=== PATIENT | female | born 2000 | race Caucasian/White ===

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

== ENCOUNTER 2019-01-03 00:28 | Observation (INO) ==
--- NOTE | 2019-01-03 00:03 | OB/GYN Progress Note ---
Date of Encounter: 01/03/19 Time of Encounter: 00:00 - Assessment and Plan (1) 37 weeks gestation of Current Visit: Yes Status: Acute SVE 1 hr later unchanged. NST reactive, FHR baseline 130bpm. Kick counts reviewed. Discharge home with return precautions. (2) False labor Current Visit: Yes Status: Acute Subjective - Subjective Principal diagnosis: contractions Interval history: 18 y/o presenting at 37w4d with c/o contractions that began at 2130 this evening and have been ~ 4 minutes apart. Denies VB or LOF. Reports good FM. Antepartum ROS: movement normal, contractions, no loss of fluid, no vaginal bleeding Objective - Exam FHR comments: NST reactive, FHR baseline 130 bpm Auscultation: bilateral: normal Abdomen: Present: normal appearance, soft, gravid Cervical dilation: 4 Cervix effacement: 70 station: -2
== END 2019-01-03 01:28 | disposition home or self-care (01) ==
LOC: 1NENULAB
PROVIDERS: ADMIT Registered Nurse; ATTEND Registered Nurse

== ENCOUNTER 2019-01-10 17:16 | Inpatient (IN) ==
[~2019-01-10 17:16] MED LIST: *HR* Nalbuphine 10 MG/ML AMPUL IVP PRN; Famotidine 20 MG/2 ML VIAL IVP PRN; Naloxone 0.4 MG/ML INJ IVP PRN
[2019-01-10] MEDS ORDERED: Ringers Solution, Lactated 1,000 ML ONE (17:25)
[2019-01-10] MEDS ORDERED: Ringers Solution, Lactated 1,000 ML IVC SCH (17:30)
[2019-01-10 17:35] LABS: Basophils % 0.4 %; Eosinophils % 0.4 %; Hematocrit 31.6 % (35.3-44.9); Hemoglobin 10.4 g/dL (11.5-15.4); Immature Granulocytes % 0.5 % (0-4); Lymphocytes # 2.2 K/mcL (0.6-4.6); Lymphocytes % 20.8 %; Mean Corpuscular HGB Conc 32.9 g/dL (31.6-35.5); Mean Corpuscular Hemoglobin 24.9 pg (28.0-33.3); Mean Corpuscular Volume 75.8 fL (83.0-100.0); Monocytes # 0.8 K/mcL (0.0-1.3); Monocytes % 7.2 %; Neutrophils # 7.4 K/mcL (1.6-8.9); Platelet Count 241 K/mcL (140-400); Red Blood Count 4.17 M/mcL (3.82-4.97); Red Cell Distribution Width 14.2 % (11.5-14.5); Segmented Neutrophils % 70.7 %
[2019-01-10] MEDS ORDERED: Epidural Premix (fent/bupiv) 110 ML EP SCH (17:45)
[2019-01-10] MEDS ORDERED: Lidocaine -MPF 1% 5 ML AMPUL ONE (17:49)
--- NOTE | 2019-01-10 18:53 | OB/GYN History & Physical ---
Date of Encounter: 01/10/19 Time of Encounter: 18:50 Assessment and Plan (1) 38 weeks gestation of Current visit: Yes Status: Acute Patient admitted for spontaneous labor at 38 weeks and 5 days (2) NST (non-stress test) reactive Current visit: Yes Status: Acute FHR 135 bpm, moderate variability +15 x 15 accelerations, no decelerations. (3) Spontaneous onset of labor Current visit: Yes Status: Acute Patient arrived to unit at 30 weeks 5 days in labor with a cervical exam of 5-6 cm (4) Maternal varicella, non-immune Current visit: Yes Status: Acute Offer vaccination History of Present Illness Chief complaint: Labor HPI: Ms. Pope is a 18 year old female at 38 weeks 5 days who arrives today in spontaneous labor. She reports positive movement, denies vaginal bleeding and leakage of fluid. She reports frequent contractions and is visibly uncomfortable with them. She does request an epidural for pain management. She states her contractions started earlier today and have progressively gotten worse. Blood type O+ GBS negative Rubella immune Varicella nonimmune T pal negative HIV-negative Past Med Surg Social Fam HX - Past Medical History Medical history: no medical history Psychiatric history: no psych history - Past Surgical History Surgical History: other Additional surgical history: left arm elbow and wrist surgery - Social History Smoking Status: Former smoker Smokeless Tobacco Status: No Alcohol use: none Drug use: none, marijuana - Family History Mother Name: Sarah Age: 53 Family Member Ethnicity: Non- Living Status: Still Living Hx Family Cardiac Disorders: No Hx Family Respiratory Disorders: No Hx Family Cancer: No Hx Family GI Disorders: No Hx Family Endocrine Disorder: No Hx Family Neuromuscular Disorders: No Hx Family Neurologic Disorders: No Hx Family HEENT Disorders: No Hx Family Autoimmune Disorders: No Hx Family Medical Disorders: No Father Family Member Ethnicity: Non- Living Status: Still Living Brother Family Member Ethnicity: Non- Living Status: Still Living Sister Family Member Ethnicity: Non- Living Status: Still Living Obstetrical History - Pregnancies : 2 Para: 1 Term: 1 : 0 Ab's: 0 Livin Medications and Allergies Pnv No.115/Iron Fumarate/FA [ 19 Chewable Tablet] 1 tab PO DAILY 05/31/18 [History] Ondansetron ODT [Zofran ODT] 4 mg SL Q6H PRN 06/10/18 [History] Promethazine [Phenergan] 12.5 mg PO Q6HR PRN 06/10/18 [History] Diphenhydramine HCl [Allergy] 12.5 mg PO Q6H PRN 06/16/18 [History] Famotidine [Pepcid] 20 mg PO BID 30 Days #60 tablet 06/19/18 [Rx] Pyridoxine (B-6) [Vitamin B-6] 75 mg PO DAILY 30 Days #30 tablet 06/19/18 [Rx] Patient Taking Own Medication 1 each PO 0800,1500 each 06/30/18 [Rx] Patient Taking Own Medication 2 each PO HS each 06/30/18 [Rx] Allergy/AdvReac Type Severity Reaction Status Date / Time No Known Allergies Allergy Verified 06/28/18 11:21 Exam - Constitutional Constitutional: well developed, well nourished, no acute distress, average body habitus - HEENT HEENT: Normocephaly, Mucus Membranes Moist - Neck Neck exam: full ROM, normal inspection - Lungs Respiratory exam: CTAB - Cardiovascular Cardiovascular exam: RRR, +S1, +S2 - Breasts Breast: bilateral: normal - Abdomen Abdomen: Present: bowel sounds normal, gravid, non tender - Extremities Extremities exam: full ROM, normal capillary refill, normal inspection Deep Tendon Reflex Grade: 2+ Normal - Vulva Vulva: bilateral: normal - Vagina Vagina: Present: normal moisture - Cervix Dilation: 8 Effacement: 100 Station: 0 - Uterus Uterus exam: Present: normal size - Anus/Rectum Anus/Rectum: Present: normal perianal skin Results Result Diagrams: 01/10/19 17:18 Abnormal lab results Hgb 10.4 g/dL (11.5-15.4) L 01/10/19 17:18 Hct 31.6 % (35.3-44.9) L 01/10/19 17:18 MCV 75.8 fL (83.0-100.0) L 01/10/19 17:18 MCH 24.9 pg (28.0-33.3) L 01/10/19 17:18 All other labs normal. - VTE Reasons for not Prescribing Prophylaxis: Treatment not Indicated - Low risk for VTE
[2019-01-10] MEDS ORDERED: Oxytocin 20 units/ LR 1000 mL 20 UNIT/1,000 ML BAG IVC ONE (19:26)
--- NOTE | 2019-01-10 19:43 | Anesthesia Evaluation PreOp ---
Date of Encounter: 01/10/19 Time of Encounter: 17:00 - Past History Planned Operation: JUSTIN Cardiac History: Denies any Significant Hx Pulmonary History: Denies Any Significant HX POULTRY DEBEAKER History: Denies Any Significant HX Other Medical History: Denies Any Significant HX Anesthesia History: No Prior Anesthetic Complications : Yes Test: Positive Alcohol Use: none Drug use: none, marijuana Medications and Allergies Pnv No.115/Iron Fumarate/FA [ 19 Chewable Tablet] 1 tab PO DAILY 05/31/18 [History] Ondansetron ODT [Zofran ODT] 4 mg SL Q6H PRN 06/10/18 [History] Promethazine [Phenergan] 12.5 mg PO Q6HR PRN 06/10/18 [History] Diphenhydramine HCl [Allergy] 12.5 mg PO Q6H PRN 06/16/18 [History] Famotidine [Pepcid] 20 mg PO BID 30 Days #60 tablet 06/19/18 [Rx] Pyridoxine (B-6) [Vitamin B-6] 75 mg PO DAILY 30 Days #30 tablet 06/19/18 [Rx] Patient Taking Own Medication 1 each PO 0800,1500 each 06/30/18 [Rx] Patient Taking Own Medication 2 each PO HS each 06/30/18 [Rx] Allergy/AdvReac Type Severity Reaction Status Date / Time No Known Allergies Allergy Verified 06/28/18 11:21 - Meds/Allergy Pre-op Review Medications Reviewed: Yes Allergies Reviewed: Yes Beta Blockers on Current Med List: No Anesthesia Results - Labs 01/10/19 17:18 Anesthesia Exam - HEENT Pupil (Motor): Pupils equal Mallampati: II Teeth: Normal Oral Opening: Greater than 3 - POULTRY DEBEAKER LOC: Oriented POULTRY DEBEAKER Motor: Normal RUE, Normal LUE, Normal RLE, Normal LLE, Normal Face POULTRY DEBEAKER Sensory: Normal: RUE, LUE, RLE, LLE, Face - Cardiac Rhythm: Regular Murmur: None JVD: No Carotid Bruit: No - Pulmonary Breath Sounds: bilateral Clear Respiratory Effort: Symmetrical Anesthesia Assess/Plan ASA Score: 1 Level of consciousness: Cooperative
--- NOTE | 2019-01-10 19:46 | Anesthesia Procedures ---
Date of Encounter: 01/10/19 Time of Encounter: 17:00 Procedures: Anesthesia - Epidural/Spinal Patient ID/Chart reviewed: Yes Patient examined: Yes OB Eval: Gestational age: 38.5 OB Eval: : 2 OB Eval: Hx Para: 1 OB Eval: Dilated at (cm): 6 OB Eval: Contractions: Non-stressed pattern Consent Obtained: Yes Site Prep: Aseptic Technique, Sterile prep and drape, Povidone-Iodine 1% Patient position: upright Amount of Local Anesthetic used: 3 Touhy Needle Gauge: 18 Touhy Needle Depth (cm): 6 Catheter Depth at Skin (cm): 8 Test Dose (1.5% Lido + Epi): Volume given (mls): 3 Test Dose Result: Negative Loading Dose Administered: Thru Catheter Catheter Secured in Place: Tegaderm, Tape Interspace Used: L4-L5 Loss of Resistance (SONAM): Yes Blood: No CSF: No Paresthesia: No Vitals + FHT's: stable throughout see nursing notes
--- NOTE | 2019-01-10 20:15 | OB/GYN Procedure Note ---
Delivery - Delivery Date: 01/10/19 Provider: Unique Ro ([place] PGY1) Intrapartum events: none Delivery induction: none Delivery augmentation: rupture of membranes Delivery monitor: external FHT, external uterine Anesthesia: epidural Quantitated Blood Loss: 50 - Infant (s) A Infant Delivery Date: 01/10/19 Infant Delivery Time: 19:28 Presentation: vertex Position: KRISTA Route of delivery: Gender: Female Viability: Viable Weight Gram: 3.695 kg at 1 minute: 8 at 5 mins: 9 Shoulder Dystocia: not encountered Specimens collected: cord blood Placenta: spontaneous Cord: 3 umbilical vessels - Repair Episiotomy: none Laceration Description: None - Complications Delivery complications: none Delivery comments: Called to room for patient with urge to push and complete/ +1 station. I was gowned and gloved and together with Dr. Elvin ALEGRE (resident) delivered a viable female infant over intact perineum. Infant placed on maternal abdomen for drying and stimulation. Cord clamped and cut after pulsation ceased. Spontaneous delivery of intact placenta, EBL 50 mls. No nuchal cord, shoulder dystocia, or meconium encountered. Mother and in kangaroo care for 2 hour recovery. - Disposition Mom disposition: stable in LDR [place] disposition: stable in LDR
[2019-01-10] MEDS ORDERED: Oxytocin 20 units/ LR 1000 mL 20 UNIT/1,000 ML BAG IVC SCH (22:04)
[2019-01-10] MEDS ORDERED: Acetaminophen 325 MG TABLET PO PRN (22:04)
[2019-01-10] MEDS ORDERED: Measles/Mumps/Rubella Vacc 0.5 ML VIAL SQ PRN (22:04)
[2019-01-10] MEDS: Ibuprofen 600 MG TABLET PO PRN (23:10)
[2019-01-11] MEDS: Ibuprofen 600 MG TABLET PO PRN ×2 (08:15→16:31)
[2019-01-11] MEDS ORDERED: Prenatal Vit/FA 1 EACH TABLET PO SCH (09:00)
--- NOTE | 2019-01-11 13:42 | Discharge Summary ---
Date of Encounter: 01/11/19 Time of Encounter: 13:33 - Discharge Diagnosis (1) Vaginal delivery Priority: Primary Status: Acute Comments: stable in PP, pain well managed on po pain medication, tolerates diet, , desires discharge. - Discharge Medications Prescriptions: Ibuprofen [Motrin] 600 mg PO Q6HR PRN #60 tablet PRN Reason: Cramping Docusate [Colace] 100 mg PO BID #60 capsule Ferrous Sulfate 325 mg PO DAILY #30 tablet Home Medications: Pnv No.115/Iron Fumarate/FA [ 19 Chewable Tablet] 1 tab PO DAILY 05/31/18 [History] Acetaminophen [Tylenol] 650 mg PO Q6HR PRN tablet 01/11/19 [Rx] Docusate [Colace] 100 mg PO BID #60 capsule 01/11/19 [Rx] Ferrous Sulfate 325 mg PO DAILY #30 tablet 01/11/19 [Rx] Ibuprofen [Motrin] 600 mg PO Q6HR PRN #60 tablet 01/11/19 [Rx] Allergies/Adverse Reactions: Allergy/AdvReac Type Severity Reaction Status Date / Time No Known Allergies Allergy Verified 06/28/18 11:21 Data Procedures and tests throughout hospitalization: Laboratory Tests 01/10/19 17:18 WBC 10.4 RBC 4.17 Hgb 10.4 L Hct 31.6 L MCV 75.8 L MCH 24.9 L MCHC 32.9 RDW 14.2 Plt Count 241 MPV 11.0 Immature Gran % 0.5 Seg Neutrophils % 70.7 Lymphocytes % 20.8 Monocytes % 7.2 Eosinophils % 0.4 Basophils % 0.4 Neutrophils # 7.4 Lymphocytes # 2.2 Monocytes # 0.8 Eosinophils # 0.0 Basophils # 0.0 Labs on day of discharge: Labs from last 24 hours 01/10/19 17:18 WBC 10.4 RBC 4.17 Hgb 10.4 L Hct 31.6 L MCV 75.8 L MCH 24.9 L MCHC 32.9 RDW 14.2 Plt Count 241 MPV 11.0 Immature Gran % 0.5 Seg Neutrophils % 70.7 Lymphocytes % 20.8 Monocytes % 7.2 Eosinophils % 0.4 Basophils % 0.4 Neutrophils # 7.4 Lymphocytes # 2.2 Monocytes # 0.8 Eosinophils # 0.0 Basophils # 0.0 Date of admission: 01/10/19 17:16 Primary care physician: Logan Martins MD Consults: 01/10/19 22:04 Consult to Pipe Line Walker [CONS] Routine Comment: Vaginal delivery, consult needed Discharging clinician: Bety Mejia Anticipated date of discharge: 01/11/19 - Patient Status Disposition: Home, Self-Care Condition: Good Functional capacity at discharge: independent ambulation Overall status at discharge: patient is progressing back to baseline - Discharge Instructions Follow Up With: Logan Martins MD [Primary Care Provider] - Rakesh Hdz DO [Partnered Physician] - - Diet and Activity Activity: resume usual activities as tolerated Diet: regular diet Hospital Course Reason for admission: IUP at term Delivery: Episiotomy: none Laceration: none Other procedures: none complications: none Discharge diagnosis: IUP at term delivered [place] baby: female Hospital course: Delivery - Delivery Date: 01/10/19 Provider: Unique Ro ([place] PGY1) Intrapartum events: none Delivery induction: none Delivery augmentation: rupture of membranes Delivery monitor: external FHT, external uterine Anesthesia: epidural Quantitated Blood Loss: 50 - (s) A Delivery Date: 01/10/19 Delivery Time: 19:28 Presentation: vertex Position: KRISTA Route of delivery: Gender: Female Viability: Viable Weight Gram: 3.695 kg at 1 minute: 8 at 5 mins: 9 Shoulder Dystocia: not encountered Specimens collected: cord blood Placenta: spontaneous Cord: 3 umbilical vessels - Repair Episiotomy: none Laceration Description: None - Complications Delivery complications: none Delivery comments: Called to room for patient with urge to push and complete/ +1 station. I was gowned and gloved and together with Dr. Elvin ALEGRE (resident) delivered a viable female infant over intact perineum. Infant placed on maternal abdomen for drying and stimulation. Cord clamped and cut after pulsation ceased. Spontaneous delivery of intact placenta, EBL 50 mls. No nuchal cord, shoulder dystocia, or meconium encountered. Mother and infant in kangaroo care for 2 hour recovery. - Disposition Mom disposition: stable in PP and appropriate for discharge Time Attestation: Total time spent providing and/or coordinating discharge services: Time Spent: Less than 30 minutes Exam - Constitutional Vitals: Temp Pulse Resp BP Pulse Ox 98.1 F 79 16 112/66 98 01/11/19 07:30 01/11/19 07:30 01/11/19 07:30 01/11/19 07:30 01/11/19 00:05 General appearance IM: A&O X 3 - Respiratory Respiratory exam: Present: CTAB - Cardiovascular Cardiovascular exam IM: Present: RRR - GI/Abdominal GI/Abdominal exam IM: soft - Uterine Tone: Firm Uterus Position: At Umbilicus - Extremities Exam Extremities exam IM: Present: normal capillary refill - Neurological Exam Neurological exam: normal gait, oriented X3 - Psychiatric Additional comments: reports good mood
[2019-01-11 15:51] VITALS: BP 118/76
== END 2019-01-11 23:30 | disposition home or self-care (01) | DRG 560 ==
LOC: 1NENULAB → 1NENUOBS 21:51
PROVIDERS: ADMIT Registered Nurse; ATTEND Registered Nurse

== ENCOUNTER 2019-12-14 11:43 | Inpatient (IN) ==
[2019-12-14 11:34] LABS: Amphetamine Screen,Urine Negative ng/mL (Cutoff=1000); Barbiturate Screen,Urine Negative ng/mL (Cutoff=200); Benzodiazepines Screen,Urine Negative ng/mL (Cutoff=200); Cannabinoid Screen,Urine Negative ng/mL (Cutoff = 50); Cocaine Screen,Urine Negative ng/mL (Cutoff= 300); Opiate Screen,Urine Negative ng/mL (Cutoff=300); Phencyclidine Screen,Urine Negative ng/mL (Cutoff=25)
[~2019-12-14 11:43] MED LIST changes: +*HR* Nalbuphine 10 MG/ML AMPUL ONE; +Lidocaine 1% 20 ML MDV INFILT PRN; +Metoclopramide 10 MG/2 ML VIAL IVP PRN; +Ondansetron 4 MG/2 ML VIAL IVP PRN; +Ringers Solution, Lactated 1,000 ML IVC SCH; +Ringers Solution, Lactated 1,000 ML ONE
[2019-12-14 11:45] LABS: Basophils # 0.1 K/mcL (0.0-0.2); Basophils % 0.6 %; Eosinophils % 0.5 %; Hematocrit 37.7 % (35.3-44.9); Hemoglobin 12.5 g/dL (11.5-15.4); Immature Granulocytes % 0.6 % (0-4); Lymphocytes # 1.9 K/mcL (0.6-4.6); Lymphocytes % 24.8 %; Mean Corpuscular HGB Conc 33.2 g/dL (31.6-35.5); Mean Corpuscular Hemoglobin 27.1 pg (28.0-33.3); Mean Corpuscular Volume 81.6 fL (83.0-100.0); Mean Platelet Volume 11.1 fL (9.4-12.4); Monocytes # 0.5 K/mcL (0.0-1.3); Monocytes % 6.6 %; Neutrophils # 5.2 K/mcL (1.6-8.9); Platelet Count 229 K/mcL (140-400); Red Blood Count 4.62 M/mcL (3.82-4.97); Red Cell Distribution Width 18.6 % (11.5-14.5); Segmented Neutrophils % 66.9 %; White Blood Count 7.8 K/mcL (4.3-11.1)
[2019-12-14] MEDS ORDERED: *HR* FentaNYL (PF) 100 MCG/2 ML VIAL EP ONE (12:03)
[2019-12-14] MEDS ORDERED: EPHEDrine 50 MG/ML VIAL IVP PRN (12:03)
[2019-12-14] MEDS ORDERED: Bupivacaine-MPF 0.25% 10 ML VIAL EP ONE (12:03)
[2019-12-14] MEDS ORDERED: Epidural Premix (fent/bupiv) 110 ML EP ONE (12:07)
[2019-12-14] MEDS ORDERED: Epidural Premix (fent/bupiv) 110 ML EP SCH (12:15)
[2019-12-14] MEDS ORDERED: Oxytocin 20 units/ LR 1000 mL 20 UNIT/1,000 ML BAG IVC ONE (14:12)
[2019-12-14] MEDS ORDERED: Acetaminophen 325 MG TABLET PO PRN (15:55)
[2019-12-14] MEDS ORDERED: Lanolin 7 G OINT...G. TP PRN (15:55)
[2019-12-14] MEDS ORDERED: Benzocaine/Menthol 56 GM AEROSOL SPRAY TP PRN (15:55)
[2019-12-14] MEDS ORDERED: Oxytocin 20 units/ LR 1000 mL 20 UNIT/1,000 ML BAG IVC SCH (15:55)
[2019-12-14] MEDS: Ibuprofen 600 MG TABLET PO PRN ×2 (16:27→23:37)
[2019-12-15 07:42] VITALS: BP 113/74
[2019-12-15] MEDS: Ibuprofen 600 MG TABLET PO PRN (07:49)
[2019-12-15] MEDS ORDERED: Prenatal Vit/FA 1 EACH TABLET PO SCH (09:00)
== END 2019-12-15 15:16 | disposition home or self-care (01) | DRG 560 ==
LOC: 1NENULAB → 1NENUOBS 17:08
PROVIDERS: ADMIT Registered Nurse; ATTEND Registered Nurse